=== PATIENT | female | born 1945 | race Caucasian/White ===

== ENCOUNTER 2019-05-03 23:00 | Emergency (ER) | payer MEDICARE, OTHER ==
[~2019-05-03] VITALS: Ht 154.9 cm; Wt 88.9 kg
[~2019-05-03 23:00] MED LIST: ACIDOPHILUS1 EAC1; B COMPLEX1 EACH; BENADRYL25 M1; CALCIUM-MAGNES1 EAC5; CHROMIUM; CO-Q10; FLAXSEED OIL1000 MG; LIPITOR20 MG; Move Free; NASONEX17 GM; OMEGA-31000 MG; PROBIOTIC & AC1 EACH; SYNTHROID25 MCG; VITAMIN C60 MG; VITAMIN D1000 UNIT; XYZAL5 MG; [UNRECOGNIZED DRUG - OTHER]; [UNRECOGNIZED DRUG - REMARK]
--- OUTSIDE RECORDS SUMMARY | 2019-05-03 23:02 | XMS REPORT ---
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 Allergies, Adverse Reactions, Alerts This patient has no known allergies or adverse reactions. Medications This patient has no known medications. Results Test Description Test Time Test Comments Text Results Atomic Results Result Comments SCR MAMM BILATERAL DIAZ CAD DIGITAL 2019-04-07 08:07:17 - SCR MAMM BILATERAL DIAZ CAD DIGITALBILATERAL DIGITAL SCREENING MAMMOGRAM 3D/2D WITH CAD: 04/07/2019CLINICAL: Asymptomatic. Digital breast tomosynthesis was performed in addition to routine CC and MLO views. Current mammographic images were evaluated by either a [employer] M-Vu or a KARAL[employer] ImageChecker CAD (computer aided detection system). Comparison is made to exams dated 04/06/2018 mammogram, mammogram, and 04/02/2016 mammogram - [facility]. The tissue of both breasts is heterogeneously dense. This may lower the sensitivity of mammography. There are benign scattered calcifications in both breasts. No suspicious mass, architectural distortion, malignant type calcification, or lymph node abnormality detected. Breast architecture is stable compared to prior exams.IMPRESSION: BENIGNThere is no mammographic evidence of malignancy. Resume annual screening mammography in one year. Malaika mcdermott/penrad:04/07/2019 08:07:17 Artistic Associate: Nadia Douglas , [facility] sent: BIRADS 1-2 Normal Mammogram BI-RADS: 2 Benign SCR MAMM BILATERAL DIAZ CAD DIGITAL 2019-04-07 08:07:17 - SCR MAMM BILATERAL DIAZ CAD DIGITALBILATERAL DIGITAL SCREENING MAMMOGRAM 3D/2D WITH CAD: 04/07/2019CLINICAL: Asymptomatic. Digital breast tomosynthesis was performed in addition to routine CC and MLO views. Current mammographic images were evaluated by either a WARSTUFF[employer] M-Vu or a [employer] ImageChecker CAD (computer aided detection system). Comparison is made to exams dated 04/06/2018 mammogram, mammogram, and [facility] The tissue of both breasts is heterogeneously dense. This may lower the sensitivity of mammography. There are benign scattered calcifications in both breasts. No suspicious mass, architectural distortion, malignant type calcification, or lymph node abnormality detected. Breast architecture is stable compared to prior exams.IMPRESSION: BENIGNThere is no mammographic evidence of malignancy. Resume annual screening mammography in one year. Malaika mcdermott/penrad:04/07/2019 08:07:17 Artistic Associate: Nadia Douglas FW, [facility]: BIRADS 1-2 Normal Mammogram BI-RADS: 2 Benign SCR MAMM BILATERAL DIAZ CAD DIGITAL 2018-04-06 17:35:37 - SCR MAMM BILATERAL DIAZ CAD DIGITALBILATERAL DIGITAL SCREENING MAMMOGRAM 3D/2D WITH CAD: 04/06/2018CLINICAL: Asymptomatic. Digital breast tomosynthesis was performed in addition to routine CC and MLO views. Current mammographic images were evaluated by either a [employer] M-Vu or a [employer] ImageChecker CAD (computer aided detection system). Comparison is made to exams dated 04/04/2017 mammogram, mammogram, and 09/27/2015 mammogram - [facility]-. The tissue of both breasts is heterogeneously dense. This may lower the sensitivity of mammography. No suspicious mass, architectural distortion, malignant type calcification, or lymph node abnormality detected. Breast architecture is stable compared to prior exams.IMPRESSION: NEGATIVEThere is no mammographic evidence of malignancy. Resume annual screening mammography in one year. Jeannie marinelli/penrad:04/06/2018 17:35:37 Artistic Associate: Kat Cooper FW, [facility] sent: BIRADS 1-2 Normal Mammogram BI-RADS: 1 Negative SCR MAMM BILATERAL DIAZ CAD DIGITAL 2018-04-06 17:35:37 - SCR MAMM BILATERAL DIAZ CAD DIGITALBILATERAL DIGITAL SCREENING MAMMOGRAM 3D/2D WITH CAD: 04/06/2018CLINICAL: Asymptomatic. Digital breast tomosynthesis was performed in addition to routine CC and MLO views. Current mammographic images were evaluated by either a [employer] M-Vu or a [employer] ImageChecker CAD (computer aided detection system). Comparison is made to exams dated 04/04/2017 mammogram, mammogram, and 09/27/2015 mammogram - [facility]-. The tissue of both breasts is heterogeneously dense. This may lower the sensitivity of mammography. No suspicious mass, architectural distortion, malignant type calcification, or lymph node abnormality detected. Breast architecture is stable compared to prior exams.IMPRESSION: NEGATIVEThere is no mammographic evidence of malignancy. Resume annual screening mammography in one year. Jeannie marinelli/vinny:04/06/2018 17:35:37 Artistic Associate: Kat DÍAZ, [facility] sent: BIRADS 1-2 Normal Mammogram BI-RADS: 1 Negative
[2019-05-04] MEDS ORDERED: IBUPROFEN 400 MG TAB PO STA (00:31)
--- NOTE | 2019-05-04 01:13 | Diagnostic Imaging Report ---
History: Neck pain. Comparison studies: None Technique: Axial images were obtained through the cervical region.. Coronal and sagittal images reconstructed from the axial data. Dose modulation, iterative reconstruction, and/or weight based adjustment of the mA/kV was utilized to reduce the radiation dose to as low as reasonably achievable. Intravenous contrast: None Findings: Fractures: None. Soft tissue injuries: None. Atlantoaxial articulation: Intact. Alignment: Loss of normal cervical lordosis is either positional or due to muscle spasm.. No scoliosis. Cervicomedullary junction: No abnormalities. The foramen magnum is patent. Soft tissues: No abnormalities. Vertebrae: No fractures, infection or neoplasm. Degenerative changes: Moderate degenerative in the anterior atlantodental joint. C4-C5: Mild left foraminal stenosis due to facet and uncovertebral arthrosis. C5-C6: Moderate degenerative disc disease. Mild right foraminal stenosis due to uncovertebral arthrosis. C6-C7: Mild degenerative disc disease. Mild right foraminal stenosis due to uncovertebral arthrosis IMPRESSION: 1. No acute cervical spine fracture or dislocation. Loss of normal cervical lordosis is either positional or due to muscle spasm. 2. Ligament, spinal cord and or vascular abnormalities cannot be excluded on the basis of this examination. 3. Mild cervical spondylosis without significant canal stenosis. Mild left foraminal stenosis at C4-C5, mild right right foraminal stenosis at C5-C6 and C6-C7. Signed by: Dr. Cyndi Still M.D. on 05/04/2019 1:10 AM
[2019-05-04] MEDS ORDERED: IBUPROFEN 200 MG TAB ONE (01:33)
== END 2019-05-04 01:30 | disposition home or self-care (01) ==
LOC: FSED 23:00
DX: M54.2 Cervicalgia (principal); S16.1XXA Strain of muscle, fascia and tendon at neck level, initial encounter; R05 Cough; I10 Essential (primary) hypertension; E78.5 Hyperlipidemia, unspecified; E03.9 Hypothyroidism, unspecified; Z85.820 Personal history of malignant melanoma of skin
CPT/HCPCS: 72125; 99283